=== PATIENT | male | born 1985 | race Caucasian/White ===

== ENCOUNTER 2017-09-15 13:55 | Emergency (ER) | payer SELFPAY ==
[2017-09-15 14:06] VITALS: BP 130/86
[2017-09-15] MEDS ORDERED: Ibuprofen TAB* 600 MG PO ONE (15:47)
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
== END 2017-09-15 16:48 | disposition left against medical advice (07) ==
LOC: ED 13:55
DX: M54.2 Cervicalgia (principal); F17.210 Nicotine dependence, cigarettes, uncomplicated; V89.2XXA Person injured in unspecified motor-vehicle accident, traffic, initial encounter; Y92.9 Unspecified place or not applicable
CPT/HCPCS: 99283; A9270-GY

== ENCOUNTER 2018-05-06 08:42 | Emergency (ER) | payer BC ==
[2018-05-06 08:54] VITALS: BP 129/77
--- NOTE | 2018-05-06 09:38 | UC ---
[facility] HPI - HPI Summary HPI Summary: 33-year-old male presents with several day history of right lower dental pain. States she has is a fairly decayed molar that is fractured a couple of occasions. His have some mild pain in the past but over the last few days the pain has become much more severe disrupting his sleep. Pain occasionally radiates into his right ear. Does not have an appointment with dentist at this time. Denies fever, chills, trismus, facial swelling, or dysphagia. - History of Current Complaint Chief Complaint: UCDentalProblem Stated Complaint: DENTAL PAIN Time Seen by Provider: 05/06/18 09:23 Hx Obtained From: Patient Onset/Duration: Gradual Onset Severity: Moderate Pain Intensity: 7 Aggravating Factor(s): Chewing Alleviating Factor(s): Nothing Dental: 1 - Severe dental decay with fracture. Mild gingival erythema without induration, fluctuance, or drainage. - Allergies/Home Medications Allergies/Adverse Reactions: Allergies Allergy/AdvReac Type Severity Reaction Status Date / Time No Known Allergies Allergy Verified 05/06/18 08:54 PMH/Surg Hx/FS Hx/Imm Hx Previously Healthy: Yes - Denies signigicant PMH Other History Of: Negative For: HIV, Hepatitis B, Hepatitis C - Surgical History Surgical History: None - Family History Family History: Noncontributory - Social History Occupation: Employed Full-time Lives: With Family Alcohol Use: None Substance Use Type: None Smoking Status (MU): Heavy Every Day Tobacco Smoker Type: Cigarettes Household Exposure Type: Cigarettes Review of Systems Constitutional: Negative Skin: Negative Eyes: Negative ENT: Dental Pain Respiratory: Negative Cardiovascular: Negative Is Patient Immunocompromised?: No All Other Systems Reviewed And Are Negative: Yes Physical Exam Triage Information Reviewed: Yes Appearance: Well-Appearing, No Pain Distress, Well-Nourished Vital Signs: Initial Vital Signs Temp 97.3 F 05/06/18 08:51 Pulse 62 05/06/18 08:51 Resp 18 05/06/18 08:51 BP 129/77 05/06/18 08:51 Pulse Ox 99 10/20/18 08:51 Eyes: Positive: Conjunctiva Clear. Negative: Discharge ENT: Positive: Hearing grossly normal, Pharynx normal, TMs normal, Dental tenderness, Uvula midline. Negative: Trismus, Sinus tenderness Dental: Positive: Gross Decay/Caries @ - #31 - see diagram Neck: Positive: Supple, Nontender, No Lymphadenopathy Respiratory: Positive: Lungs clear, Normal breath sounds, No respiratory distress Cardiovascular: Positive: RRR, No Murmur Neurological: Positive: Alert Skin Exam: Normal Dental Complaint Course/Dx - Course Course Of Treatment: 33-year-old male with severe dental decay to his third right lower molar presents for several days of dental pain. He currently does not have a dentist appointment scheduled. He was encouraged to call and make an appointment with the next available for definitive care. We'll treat at this time with amoxicillin to for 10 days and provided a prescription for naproxen for pain relief. Reviewed warning symptoms with the patient. Verbalizes understanding and agrees with plan of care. - Differential Dx/Diagnosis Provider Diagnoses: Dental pain Discharge - Sign-Out/Discharge Documenting (check all that apply): Patient Departure All imaging exams completed and their final reports reviewed: No Studies - Discharge Plan Condition: Stable Disposition: HOME Prescriptions: Amoxicillin PO (*) [Amoxicillin 875 MG (*)] 875 mg PO BID #20 tab Naproxen [Naproxen 500 mg tab] 500 mg PO BID PRN #30 tablet PRN Reason: Pain Patient Education Materials: Toothache (ED) Referrals: No Primary Care Phys,NOPCP [Primary Care Provider] - Additional Instructions: Start amoxicillin 875 mg twice a day for 10 days. Take this with food to avoid upset stomach. Be sure to finish the entire 10 days even if you're feeling better. Take naproxen 1 tablet every 12 hours as needed for pain. He should take this with food as well to avoid upset stomach. Use salt water rinses especially after eating and at bedtime. Sure to use good oral hygiene. You'll need to schedule an appointment with dentist at the next available appointment to have that tooth pulled. Seek immediate medical attention in the emergency room if you develop a fever greater than 100.5 F, you are unable to open your mouth, have difficulty swallowing, difficulty breathing, any worsening of symptoms. - Billing Disposition and Condition Condition: STABLE Disposition: Home
== END 2018-05-06 09:40 | disposition home or self-care (01) ==
LOC: UCEAST 08:42
DX: K08.89 Other specified disorders of teeth and supporting structures (principal); K03.81 Cracked tooth; K02.9 Dental caries, unspecified; F17.210 Nicotine dependence, cigarettes, uncomplicated
CPT/HCPCS: 99212; G0463